=== PATIENT | female | born 1995 | race Caucasian/White ===

== ENCOUNTER 2022-10-09 15:15 | Emergency (ER) | payer SELFPAY ==
[~2022-10-09] VITALS: Ht 167.6 cm; Wt 72.6 kg
--- NOTE | 2022-10-09 15:18 | NUR ---
Patient to ER bed 07 to gown for evaluation. Side rails up.
[2022-10-09 15:19] VITALS: BP_SYST 151
--- NOTE | 2022-10-09 15:20 | NUR ---
pt brought from [facility] accompanied by a sitter, pt presents to ER with a foreign object on vaginal area , pt arrived to ER sedated, per EMS pt was given Ativan prior arrival, skin pink and warm, respirations even and unlabored, cap refill <3, VSS.
--- NOTE | 2022-10-09 15:30 | NUR ---
Dr Alfonso evaluating patient at bedside
--- NOTE | 2022-10-09 16:31 | NUR ---
Per Dr Alfonso no foreign object was found on vaginal area, KUB and CT ordered by to r/o foreign object.
[2022-10-09 19:30] VITALS: BP_SYST 136
--- NOTE | 2022-10-09 21:02 | NUR ---
Patient given written and verbal discharge instructions and verbalizes understanding. ER MD discussed with patient the results and treatment provided. Patient in stable condition. ID arm band removed. Patient educated on pain management and to follow up with PMD. Pain Scale 0. Opportunity for questions provided and answered.
== END 2022-10-09 20:58 | disposition home or self-care (01) ==
LOC: SED 15:15
DX: T19.2XXA Foreign body in vulva and vagina, initial encounter (principal); Z79.899 Other long term (current) drug therapy; W45.8XXA Other foreign body or object entering through skin, initial encounter; Y93.89 Activity, other specified; Y92.89 Other specified places as the place of occurrence of the external cause; Y99.8 Other external cause status
CPT/HCPCS: 74018; 76376; 99284